=== PATIENT | male | born 1985 | race Caucasian/White ===

== ENCOUNTER 2022-08-04 06:29 | Emergency (ER) | payer OTHER ==
[~2022-08-04] VITALS: Ht 177.8 cm; Wt 83.9 kg
== END 2022-08-04 12:21 | disposition home or self-care (01) ==
LOC: ED 06:29
DX: S20.20XA Contusion of thorax, unspecified, initial encounter (principal); F17.200 Nicotine dependence, unspecified, uncomplicated; V89.2XXA Person injured in unspecified motor-vehicle accident, traffic, initial encounter; Y93.89 Activity, other specified; Y92.89 Other specified places as the place of occurrence of the external cause; Y99.8 Other external cause status